=== PATIENT | male | born 1965 | race American Indian/Alaskan Native ===

== ENCOUNTER 2023-07-02 14:21 | Inpatient (IN) | payer BC, SELFPAY ==
[2023-07-02] VITALS (8 sets, daily range): BP systolic 129–143; BP diastolic 87–99; BMI 29.2
[2023-07-02 11:09] LABS: % Basophils 0.5 % (0-2); % Immature Granulocytes 0.5 % (0-0.5); % Lymphocytes 23.3 % (20.5-51.1); % Monocytes 12.5 % (1.7-9.3); % Neutrophils 61.2 % (42.2-75.2); Absolute Eosinophils 0.1 10^3/uL (0-0.7); Absolute Lymphocytes 1.4 10^3/uL (1.2-3.4); Absolute Monocytes 0.8 10^3/uL (0.1-0.6); Absolute Neutrophils 3.7 10^3/uL (1.4-6.5); Hematocrit 32.2 % (39.0-52.0); Hemoglobin 10.7 g/dL (13.0-18.0); Mean Corp Hgb Conc. 33.2 g/dL (33.0-37.0); Mean Corpuscular Volume 63.1 fL (80.0-94.0); Mean Platelet Volume 10.4 fL (7.4-10.4); Nucleated Red Blood Cells % 0 % (-); Platelet Count 280 10^3/uL (130-400); Red Cell Dist. Width 16.6 % (11.5-14.5); White Blood Cell Count 6.1 10^3/uL (4.8-10.8)
[2023-07-02 11:24] LABS: ALT (SGPT) 20 U/L (0-50); AST (SGOT) 28 U/L (17-59); Albumin 4.2 g/dl (3.5-5.0); Alkaline Phosphatase 54 U/L (38-126); Blood Urea Nitrogen 13 mg/dl (9-20); Calcium 8.8 mg/dl (8.4-10.2); Carbon Dioxide 21 mmol/L (22-30); Chloride 93 mmol/L (98-107); Glucose 86 mg/dl (70-99); Potassium 4.4 mmol/L (3.5-5.1); Sodium 119 mmol/L (135-145); Total Bilirubin 1.4 mg/dl (0.2-1.3); Total Protein 7.1 g/dl (6.3-8.2); eGFR > 60.00
[2023-07-02 11:30] LABS: Troponin I < 0.012 ng/ml
--- NOTE | 2023-07-02 12:19 | ED.GENMED ---
History of Present Illness
General
Chief Complaint: Chest Pain
Source: patient and family
Time Seen by Provider: 07/02/23 11:53
Travel History
Have you had any contact with someone who has COVID-19?: No
Do you have any symptoms of coronavirus? Fever > 100 degrees, chills, cough, shortness of breath, sore throat, loss of taste or smell, muscle aches, or headache?: No
History of Present Illness
History of Present Illness:
58-year-old male with past medical history of recent calvarial fracture with resulting intracranial bleeding in May, hypothyroidism and beta thalassemia presenting to the emergency department with family after patient reported some left-sided
chest discomfort over the last few days, waxes and wanes, no exacerbating or alleviating symptoms, currently asymptomatic. Daughter does note that patient has expressed some generalized fatigue and weakness as well as seems to be having some memory
issues but that the memory issues go back to his last head injury in May. Patient was admitted at [facility] for approximately 10 days. He had repeat head CT showing no further bleeding 2 days after the initial injury. They
do note that while he was at the hospital he had issues with hyponatremia and is currently taking sodium tablets and has a follow-up visit scheduled with nephrology in the coming week or so. They also note he is scheduled to have an MRI of his head
on July 10 due to ongoing left ear hearing issues since his fall/injury.
Past History
Past History
ED Past Medical History: Hypothyroidism and Other (ICH); Negative Asthma, HTN, Hypercholesterolemia or NIDDM
ED Past Surgical History: Other (Hernia repair)
Social History
Tobacco: Non-smoker
Alcohol: None
Drug: None
Personal:
Living: with family
Review of Systems
Review of Systems
All Other Systems: ROS reviewed and negative except as documented in HPI and ROS
Phy Exam
Physical Exam
Physical Exam:
GENERAL: Alert , in no apparent distress
EYE: conjunctiva clear
NECK: Supple
ENT: o/p clr, mmm.
CARDIAC: Regular rate and rhythm
LUNGS: Clear breath sounds bilaterally, no acute respiratory distress, no wheezes/rales/rhonchi
Abdomen: Soft, nontender, nondistended
NEUROLOGICAL: Alert and oriented
SKIN: Warm and dry, skin intact.
MUSCULOSKELETAL: well perfused.
PSYCH: Normal and appropriate interaction.
Scores
Heart Failure Risk
Heart Failure Risk Score: Not Applicable
Heart Score for Chest Pain Patients
STEMI patient?: No
History: Slightly or Non-Suspicious
ECG: Normal
Age: >45 - <65 years
Risk Factors: 1 or 2 Risk Factors
Troponin: </= Normal Limit
Heart Score for Chest Pain Patients: 2
Heart Score Risk: 2.5% MACE over next 6 weeks
Withdrawal Assessment of Alcohol
Withdrawal Assessment Completed?: Not applicable
Course
Orders/Labs/Results
Orders:
Orders
07/02/23 10:33
ECG [Electrocardiogram (*1)] Urgent
Reason for Study: Chest Pain
EKG- Treatment ONCE
07/02/23 10:34
Electrocardiogram (*1) Urgent
Reason for Study: Chest Pain
EKG- Treatment ONCE
07/02/23 10:51
CMP [Comprehensive Metabolic Panel] Urgent
Complete Blood Count/With Diff Urgent
Troponin I Urgent
07/02/23 12:09
Osmolality, Random Urine Urgent
Serum Osmolality Urgent
Urine Sodium Urgent
07/02/23 12:14
CR Chest - 2 Views Urgent
Comment:
Reason For Exam: chest pain
07/02/23 12:20
CT Head W/o Iv Contrast Urgent
Comment:
Reason For Exam: recent fall with ICH in may. hyponatremia
07/02/23 13:00
3% Sodium Chloride 250 ml [Sodium Chloride 3%] 250 ml IV ONCE
07/02/23 17:00
Basic Metabolic Panel Routine
Abnormal Lab Results
07/02/23
10:51
Hgb 10.7 L g/dL
(13.0-18.0)
Hct 32.2 L %
(39.0-52.0)
MCV 63.1 L fL
(80.0-94.0)
MCH 21.0 L pg
(27.0-31.0)
RDW 16.6 H %
(11.5-14.5)
Absolute Monos (auto) 0.8 H 10^3/uL
(0.1-0.6)
Monocytes % 12.5 H %
(1.7-9.3)
Sodium 119 L* mmol/L
(135-145)
Chloride 93 L mmol/L
(98-107)
Carbon Dioxide 21 L mmol/L
(22-30)
Total Bilirubin 1.4 H mg/dl
(0.2-1.3)
07/02/23 10:51
Vital Signs
Initial and Last Documented VS:
Initial Vital Signs
Temp Pulse Resp BP Pulse Ox
98.4 F 70 18 133/87 100
07/02/23 10:36 07/02/23 10:36 07/02/23 10:36 07/02/23 10:36 07/02/23 10:36
Last Documented Vital Signs
Temp Pulse Resp BP Pulse Ox
98.4 F 70 18 142/91 100
07/02/23 10:36 07/02/23 13:00 07/02/23 12:45 07/02/23 12:44 07/02/23 13:00
Bryologist consulted with Physician
Bryologist consulted with physician?: Yes
Name of Physician Consulted: [place]
MDM/Problems Addressed
Differential Diagnosis Includes:
Atypical ACS presentation, PE considered given recent hospitalization however patient is not having any other symptoms nor abnormal vital signs suggestive of a PE, muscular etiology, electrolyte disturbance, I do not have concern for recurrent
intracranial bleeding
MDM/Problems Addressed:
58-year-old male presenting the emergency department for chest pain as well as family reporting some generalized weakness/fatigue and memory issues but the memory issues seem to be more of a ongoing issue since recent head injury. Labs have been
initiated in triage and reveal a significant hyponatremia of 119. Patient's EKG and troponin are unremarkable and I am less suspicious for ACS as potential cause for patient's presenting symptoms. Given his profound hyponatremia will admit. Plan
to discuss with nephrology and hospitalist team.
*Radiology
Radiology exam reviewed: radiology read reviewed
*Pulse Oximetry
Patient hypoxic: no
*EKG
Interpreted by ED Provider?: Yes
Comparison EKG: no changes
Heart Rate: 70
Rate: normal
Rhythm: sinus
[place]: normal axis
Interval: first degree heart block
Ischemia: no ischemia
*Suction Dredge Dumping Supervisor Interpretation
Rate: normal
Rhythm: sinus
*Critical Care Note
Total Time (30-74mins, 75-104mins- exclusive of procedures): 30
comment:
Critical care statement: A total of 30 minutes of critical care time was provided for this patient. This includes management of unstable vital signs, evaluation of the patient at bedside, reviewing the patient's pertinent medical records, discussion
with consultants, review of old EKGs and review of pertinent medical records. This time with separate from time utilized to perform the aforementioned documented procedures
Data Reviewed
Review of Other/Old Records Reveals: Labs
Source: patient and records
Patient Management
Discussion with other providers: Hospitalist and Senior Control Systems Engineer
Escalation/DeEscalation of care consider admission/obs:
I discussed the case with on-call yard motor operator, Dr. Taylor, who agrees with plan for 30 mL/h of 3% normal saline and will consult on the patient. Hospitalist team is aware and accepts for continued evaluation and treatment.
ED Attending Note
-
Portions of this chart may have been created with voice recognition software.� Occasional wrong word or��sound alike� substitutions may have occurred due to the inherent limitations of voice recognition software.
Discharge Plan
Departure
Patient Disposition: Admit
Date of Disposition: 07/02/23
Time of Disposition: 12:19
Presentation/result/management discussed w/ accepting MD/DO: Hospitalist
Discharge Problem:
Acute hyponatremia
Prescriptions:
No Action
levothyroxine 88 mcg Capsule
88 mcg PO DAILY
acetaminophen [Tylenol] 325 mg Tablet
650 mg PO Q4HPRN PRN (Reason: mild pain)
sodium chloride 1 gram Tablet
1,000 mg PO DAILY
calcium carbonate [Calcium 500] 500 mg calcium (1,250 mg) Tablet
500 mg PO DAILY
Interventions
Interventions:
*Risk Screen - Suicide Last Done: 07/02/23 12:32
*General Assessment Last Done: 07/02/23 12:33
*Neglect/Abuse Screening Last Done: 07/02/23 12:32
*ED COVID-19 Vaccine History Last Done: 07/02/23 12:33
ED- Cardiac Assessment Last Done: 07/02/23 13:09
Discharge Date and Time
Print Language: YEMENI
--- NOTE | 2023-07-02 12:26 | W.CON.NEPH ---
Consultation
-
Date/Time Consultation Requested: July 02, 2023 11 AM
Date/Time Consultation Performed: July 02, 2023 1 PM
Requesting Provider: Dr. Gordon
Performing Provider: Dr. Taylor
Reason for Consultation: Hyponatremia
Medical History
-
Chief Complaint: Hyponatremia
History of Present Illness:
This is a 58-year-old [place] gentleman with very limited medical history. He has hypothyroidism treated with Synthroid without issues. On May 27 he had fallen and hit his head and became unconscious. He was taken to [facility] and was diagnosed with left-sided skull fracture as well as intracranial hemorrhage. At that time he was also noted to have hyponatremia with a sodium level of 119 by his report. This was treated and ultimately he was given sodium
chloride tablets. He says that he had follow-up blood work on June 22 with his primary which had shown a sodium level of 131. Over the last 2 days he started to have chest pain in the left upper chest wall. This is what prompted his emergency
room visit. Here he was noted to have a sodium level of 119. He does also have beta thalassemia trait with stable hemoglobin and anemia.
Past Medical History
Hypothyroidism
Intracranial hemorrhage
Beta thalassemia trait
Bilateral inguinal hernia repair
Bilateral rotator cuff surgery
Social History
Tobacco: Non-Smoker
Alcohol: None
Family History
No CKD
Allergies / Home Medications
Allergy/AdvReac Type Severity Reaction Status Date / Time
No Known Allergies Allergy Verified 10/18/21 08:30
�Medication �Instructions �Recorded �Confirmed �Type
levothyroxine 88 mcg capsule 88 mcg PO DAILY 10/14/21 10/18/21 History
multivitamin 1 tab PO DAILY 10/14/21 10/18/21 History
oxycodone 5 mg tablet 5 - 10 mg (1 - 2 x 5 mg) PO Q4HPRN 10/18/21 Rx
PRN moderate to severe pain #14
tabs
Physical Exam
Vital Signs
Vital Signs
Temp Pulse Resp BP Pulse Ox
98.4 F 70 18 133/87 100
07/02/23 10:36 07/02/23 10:36 07/02/23 10:36 07/02/23 10:36 07/02/23 10:36
Lab Results
WBC 6.1 10^3/uL (4.8-10.8) 07/02/23 10:51
RBC 5.10 10^6/uL (4.70-6.10) 07/02/23 10:51
Hgb 10.7 g/dL (13.0-18.0) L 07/02/23 10:51
Hct 32.2 % (39.0-52.0) L 07/02/23 10:51
Plt Count 280 10^3/uL (130-400) 07/02/23 10:51
Sodium 119 mmol/L (135-145) L* 07/02/23 10:51
Potassium 4.4 mmol/L (3.5-5.1) 07/02/23 10:51
Chloride 93 mmol/L (98-107) L 07/02/23 10:51
Carbon Dioxide 21 mmol/L (22-30) L 07/02/23 10:51
BUN 13 mg/dl (9-20) 07/02/23 10:51
Creatinine 0.7 mg/dL (0.7-1.3) 07/02/23 10:51
eGFR > 60.00 07/02/23 10:51
Glucose 86 mg/dl (70-99) 07/02/23 10:51
Calcium 8.8 mg/dl (8.4-10.2) 07/02/23 10:51
Albumin 4.2 g/dl (3.5-5.0) 07/02/23 10:51
Assessment/Plan
-
Assessment:
Hyponatremia
Recent intracranial hemorrhage
Hypothyroidism
Beta thalassemia trait
Plan:
3% sodium chloride solution IV at 30 mL/h.
Serial BMP
Check urine studies
Check CT head
Fluid restriction 1200 cc/day
Reviewed with patient and daughter
Data Reviewed
-
Radiology: Image Personally Visualized and interpreted (Chest x-ray on 07/02/2023 by my reading shows no acute disease) and Report Reviewed by me (CT head on 07/02/2023 shows no bleeding. Chronic right basal ganglia infarct)
Medical Tests (Nuc Med, Echo etc): Image Personally Visualized and interpreted (EKG on July 02, 2023 by my reading shows normal sinus rhythm first-degree AV block)
Labs: Labs Reviewed by me
Old Records: Reviewed
[2023-07-02] MEDS: SODIUM CHLORIDE 3% 250 IV (13:05)
--- NOTE | 2023-07-02 14:05 | HPS.HSE ---
Family Physician
-
Family Physician: Keith Galindo MD
Chief Complaint
-
chest pain
History of Present Illness
58 y/o M hx of recent intracranial hemorrhage after fall (05/2023) presents to ER for chest pain. Describes pain as Left upper chest wall, sharp, 4/10, nonradiating. At home, took Tylenol with relief. No associated SOB/palpitations/fever/chills. No
trauma. Pain relieved with Tylenol.
Recently patient admitted [facility] for fall and suffered intracranial hemorrhage. He was conservatively managed. At that visit, was noted to have hyponatremia to 119 - given salt tabs. Outpatient being managed by primary and highest improvement was
to 131.
In ER here found to have Na 119. 3% saline started. Patient admitted.
Medical History
Past Medical History
Past Medical History: Reports Hypothyroidism and Other (intracranial hemorrhage after fall (05/2023))
Past Surgical History: Reports Orthopedic (rotator cuff surgery) and Other (bilateral inguinal hernia repair)
Social History
Tobacco: Non-smoker
Alcohol: None
Drug: None
Personal:
Living: With Family
Family History
Family History: Not pertinent
Allergies / Home Medications
Allergies reflects when Allergies were last updated in [facility].
Home Medications with original date entered in [employer]
Allergy/Medication List:
Allergies
Allergy/AdvReac Type Severity Reaction Status Date / Time
No Known Allergies Allergy Verified 10/18/21 08:30
Home Medications
levothyroxine 88 mcg capsule 88 mcg PO DAILY 10/14/21
acetaminophen 325 mg tablet (Tylenol) 650 mg PO Q4HPRN PRN mild pain 07/02/23
calcium carbonate 500 mg PO DAILY 07/02/23
sodium chloride 1 gram tablet 1,000 mg PO DAILY 07/02/23
Review of Systems
-
A 12 point ROS was completed and negative except as noted: Yes
Physical Exam
Vital Signs
Vital Signs
Temp Pulse Resp BP Pulse Ox
98.4 F 70 18 142/91 100
07/02/23 10:36 07/02/23 13:00 07/02/23 12:45 07/02/23 12:44 07/02/23 13:00
Physical Exam
General: No Apparent Distress
HEENT: NormoCephalic and Anicteric
Respiratory: Clear; No Wheezes, Rales or Rhonchi
Cardiac: S1/S2 and Regular Rhythm
GI: Soft and Non Tender
Genito-urinary: Clear Urine
Musculoskeletal: No Edema
Neuro: AO x 3
Hematologic/Lymphatic: No Lymphadenopathy
Psych: Calm
Laboratory Results
-
07/02/23 10:51
Laboratory Results
Total Bilirubin 1.4 mg/dl (0.2-1.3) H 07/02/23 10:51
AST 28 U/L (17-59) 07/02/23 10:51
ALT 20 U/L (0-50) 07/02/23 10:51
Alkaline Phosphatase 54 U/L (38-126) 07/02/23 10:51
Troponin I < 0.012 ng/ml 07/02/23 10:51
Data Reviewed
-
Diagnostic Radiology: Report Reviewed by me, Discussed with Patient and Discussed with Family
Lab Data: Labs Reviewed by me, Discussed with Patient and Discussed with Family
Impression/Plan
-
Assessment:
L chest wall pain
- atypical; family feels stress related
- trop neg x 1; repeat at 5pm
- EKG without ischemia
- CXR negative
- prn Tylenol
Acute hyponatremia, euvolemic
- on salt tabs outpatient - will hold for now
- Nephrology consulted
- check urine lytes, osms, TSH, AM cortisol
- 3% saline - repeat BMP 5pm. Avoid rapid overcorrection.
- 1200 cc fluid restrict
Recent intracranial hemorrhage from fall
- s/p 10 hospitalization at [facility] in late May
- CT head negative here
Hypothyroidism - continue replacement
Microcytic anemia
B-thal trait
DVT ppx: SCDs
Code: Full
[2023-07-02 16:03] LABS: Osmolality Urine 575 mOsm/kg (300-900)
[2023-07-02 16:17] LABS: Urine Sodium 195 mmol/L (30-90)
[2023-07-02 16:36] LABS: Osmolality Serum 251 mOsm/kg (275-300)
--- NOTE | 2023-07-02 16:55 | PTCARENOTE ---
pt aaox3. admit form ed. walked to bed. pt states no pain or sob. room air breath sounds clear. nsr seen on monitor. 3% saline running as ordered.
[2023-07-02 17:47] LABS: Troponin I < 0.012 ng/ml
[2023-07-02 18:13] LABS: Blood Urea Nitrogen 13 mg/dl (9-20); Calcium 8.9 mg/dl (8.4-10.2); Carbon Dioxide 21 mmol/L (22-30); Chloride 91 mmol/L (98-107); Estimated Creatinine Clearance 125 ml/min; Glucose 102 mg/dl (70-99); Potassium 4.5 mmol/L (3.5-5.1); Sodium 119 mmol/L (135-145); eGFR > 60.00
[2023-07-02 23:46] LABS: Blood Urea Nitrogen 12 mg/dl (9-20); Calcium 8.7 mg/dl (8.4-10.2); Carbon Dioxide 21 mmol/L (22-30); Chloride 94 mmol/L (98-107); Estimated Creatinine Clearance 125 ml/min; Glucose 95 mg/dl (70-99); Potassium 4.4 mmol/L (3.5-5.1); Sodium 120 mmol/L (135-145); eGFR > 60.00
[2023-07-03] VITALS (11 sets, daily range): BP systolic 129–146; BP diastolic 85–117; BMI 26.7
[2023-07-03] MEDS: SODIUM CHLORIDE 3% 250 IV ×3 (00:20→19:16)
[2023-07-03 04:42] LABS: Hematocrit 36.4 % (39.0-52.0); Hemoglobin 11.9 g/dL (13.0-18.0); Mean Corp Hgb Conc. 32.7 g/dL (33.0-37.0); Mean Corpuscular Hgb 20.8 pg (27.0-31.0); Mean Corpuscular Volume 63.7 fL (80.0-94.0); Mean Platelet Volume 10.6 fL (7.4-10.4); Platelet Count 271 10^3/uL (130-400); Red Blood Cell Count 5.71 10^6/uL (4.70-6.10); Red Cell Dist. Width 17.5 % (11.5-14.5); White Blood Cell Count 6.8 10^3/uL (4.8-10.8)
[2023-07-03 05:02] LABS: Blood Urea Nitrogen 11 mg/dl (9-20); Carbon Dioxide 20 mmol/L (22-30); Chloride 94 mmol/L (98-107); Estimated Creatinine Clearance 125 ml/min; Glucose 93 mg/dl (70-99); Potassium 4.7 mmol/L (3.5-5.1); Sodium 121 mmol/L (135-145); eGFR > 60.00
[2023-07-03 05:34] LABS: Cortisol, Random 16.2 ug/dl; TSH 0.87 uIU/ml (0.47-4.68)
[2023-07-03] MEDS: SYNTHROID 88 MCG PO (06:20)
--- NOTE | 2023-07-03 08:15 | PTCARENOTE ---
Patient received from manufacturing shift supervisor. Patient resting comfortably in bed. AAO, VSS. No events noted overnight. No complaints of pain at this time. Currently on 3% NSS, will confirm next lab draws and renewal of 3%. Call bingham in reach.
--- NOTE | 2023-07-03 12:32 | W.PN.NEPH.PH ---
Today's Communication / Plan
-
cont 3% saline, FR
resume salt tab soon
Assessment/Plan
-
Assessment:
Hyponatremia
Recent intracranial hemorrhage
Hypothyroidism
Beta thalassemia trait
Plan:
Hyponatremia likely SIADH with recent h.o head injury, CT head no bleed
3% sodium chloride solution IV at 30 mL/h to continue
sodium slow to improve 121 this am .
Serial labs Q4h
U na high 195 on salt tab, U osmo high 575
TSH and cortisol were ok
need FR 40 ounces/day
monitor mild met acidosis
Reviewed with patient
-
-
Date of Service: July 03, 2023
CC / HPI / ROS
-
Chief Complaint:
hyponatremia
History of Present Illness:
sodium improving to 121 on 3% saline
BP stable
no fever, non oliguric subjectively
Review of Systems:
no cp or sob
no dysuria
Labs
-
Labs:
WBC 6.8 10^3/uL (4.8-10.8) 07/03/23 04:07
RBC 5.71 10^6/uL (4.70-6.10) 07/03/23 04:07
Hgb 11.9 g/dL (13.0-18.0) L 07/03/23 04:07
Hct 36.4 % (39.0-52.0) L 07/03/23 04:07
Plt Count 271 10^3/uL (130-400) 07/03/23 04:07
Potassium 4.7 mmol/L (3.5-5.1) 07/03/23 04:07
Chloride 94 mmol/L (98-107) L 07/03/23 04:07
Carbon Dioxide 20 mmol/L (22-30) L 07/03/23 04:07
BUN 11 mg/dl (9-20) 07/03/23 04:07
Creatinine 0.7 mg/dL (0.7-1.3) 07/03/23 04:07
eGFR > 60.00 07/03/23 04:07
Glucose 93 mg/dl (70-99) 07/03/23 04:07
Calcium 9.0 mg/dl (8.4-10.2) 07/03/23 04:07
Albumin 4.2 g/dl (3.5-5.0) 07/02/23 10:51
Physical Exam
-
Vital Signs:
Vital Signs
Temp Pulse Resp BP Pulse Ox
98.2 F 58 14 145/89 97
07/03/23 11:37 07/03/23 06:00 07/03/23 06:00 07/03/23 06:00 07/03/23 06:00
Cardiovascular:: Regular rate and rhythm
Respiratory:: Bilateral: CTA
Lung Excursion:: Normal
Abdomen:: Nontender and Soft
Extremity Edema:: None: Bilateral:
Pulido Catheter: No
[2023-07-03 12:55] LABS: Sodium 123 mmol/L (135-145)
[2023-07-03 16:40] LABS: Sodium 122 mmol/L (135-145)
--- NOTE | 2023-07-03 17:04 | CM ---
Patient with Dx L chest wall pain, Acute hyponatremia.
Met with patient who resides with his in a 2 story house.
The patient has been independent in ADLs and ambulation.
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
The patient has no DME, prior VN.
PCP - Keith Galindo
Pharmacy - [facility]
His son will provide transport home.
No CM d/c needs identified.
Plan home.
--- NOTE | 2023-07-03 17:16 | W.PN.HOSP.TC ---
Today's Communication/Plan
-
follow lytes
Assessment / Plan
Assessment / Plan
L chest wall pain
- atypical; family feels stress related
- trop neg x 2
- EKG without ischemia
- CXR negative
- prn Tylenol
Acute hyponatremia, euvolemic, s/p head trauma
- on salt tabs outpatient - resume as per Nephro
- Nephrology consulted
- check urine lytes: Urine Osmo 575, Ur Na 195 (30-90), TSH 0.87, AM 16.2
- 3% saline - repeat BMP 5pm. Avoid rapid overcorrection.
- 1200 cc fluid restrict
Na 119-->120-->121-->122
Recent intracranial hemorrhage from fall
- s/p hospitalization at [facility] in late May
- CT head negative here
Hypothyroidism - continue replacement
Microcytic anemia
B-thalassemia trait
DVT ppx: SCDs
Code: Full
Anticipated Discharge: > 48 hours
Subjective/Interval History
-
Date of Service: July 03, 2023
Awake, alert, conversant
Objective Data
-
Labs:
Laboratory Results
07/03/23 07/03/23 07/03/23
12:17 15:56 20:00
Sodium 123 L 122 L Pending
Vital Signs:
Vital Signs
Temp Pulse Resp BP Pulse Ox
98.1 F 58 14 145/89 95
07/03/23 16:00 07/03/23 06:00 07/03/23 06:00 07/03/23 06:00 07/03/23 10:45
I&O
07/02/23 07/03/23 07/04/23
06:59 06:59 06:59
Intake Total 360 / 360 240 / 240
Balance 360 / 360 240 / 240
Review of Systems
-
History Source: Patient and Coordinated Provider
Constitutional: Denies Fever
EENT: Reports No Symptoms Reported
Respiratory: Reports No Symptoms; Denies Trouble Breathing
Cardiac: Reports No Symptoms
Genitourinary: Reports No Symptoms
Neuro: Reports No Symptoms; Denies Dizzy or Headache
Physical Exam
-
General: Well Developed, Well Nourished and No Apparent Distress
HEENT: Normocephalic, Atraumatic and Moist Mucous Membranes
Respiratory: Clear to Auscultation; Negative Wheezes, Rales or Rhonchi
Cardiac: Regular Rhythm and S1/S2
GI: Soft, Nontender and Nondistended
Musculoskeletal: No Clubbing, No Cyanosis and No Edema
Neuro: Awake, Alert and Oriented
[2023-07-03] MEDS: LASIX 20 MG IV (17:27)
[2023-07-03 20:19] LABS: Sodium 126 mmol/L (135-145)
[2023-07-04] VITALS (8 sets, daily range): BP systolic 121–137; BP diastolic 74–99
[2023-07-04 01:43] LABS: Sodium 129 mmol/L (135-145)
[2023-07-04] MEDS: SYNTHROID 88 MCG PO (04:52)
[2023-07-04 05:28] LABS: Blood Urea Nitrogen 12 mg/dl (9-20); Calcium 9.2 mg/dl (8.4-10.2); Carbon Dioxide 22 mmol/L (22-30); Chloride 99 mmol/L (98-107); Estimated Creatinine Clearance 109 ml/min; Glucose 98 mg/dl (70-99); Potassium 5.1 mmol/L (3.5-5.1); Sodium 127 mmol/L (135-145); eGFR > 60.00
[2023-07-04] MEDS: SODIUM CHLORIDE 3% 250 IV (06:34)
--- NOTE | 2023-07-04 11:47 | W.PN.NEPH.PH ---
Today's Communication / Plan
-
resume salt tab and suspect will need lasix even at d/c
cont 3% , recheck labs
Assessment/Plan
-
Assessment:
Hyponatremia
Recent intracranial hemorrhage
Hypothyroidism
Beta thalassemia trait
Plan:
Hyponatremia likely SIADH with recent h.o head injury, CT head no bleed
sodium improving slowly with 3%
recheck now and likely dose lasix again
U na high 195 on salt tab, U osmo high 575
TSH and cortisol were ok
FR 40 ounces/day
Reviewed with patient
-
-
Date of Service: July 04, 2023
CC / HPI / ROS
-
Chief Complaint:
hyponatremia
History of Present Illness:
sodium improving to 129 on 3% saline but down to 127 off 3% this am
BP stable
no fever, non oliguric subjectively
Review of Systems:
no cp or sob
no dysuria
Labs
-
Labs:
WBC 6.8 10^3/uL (4.8-10.8) 07/03/23 04:07
RBC 5.71 10^6/uL (4.70-6.10) 07/03/23 04:07
Hgb 11.9 g/dL (13.0-18.0) L 07/03/23 04:07
Hct 36.4 % (39.0-52.0) L 07/03/23 04:07
Plt Count 271 10^3/uL (130-400) 07/03/23 04:07
Potassium 5.1 mmol/L (3.5-5.1) 07/04/23 04:57
Chloride 99 mmol/L (98-107) 07/04/23 04:57
Carbon Dioxide 22 mmol/L (22-30) 07/04/23 04:57
BUN 12 mg/dl (9-20) 07/04/23 04:57
Creatinine 0.8 mg/dL (0.7-1.3) 07/04/23 04:57
eGFR > 60.00 07/04/23 04:57
Glucose 98 mg/dl (70-99) 07/04/23 04:57
Calcium 9.2 mg/dl (8.4-10.2) 07/04/23 04:57
Albumin 4.2 g/dl (3.5-5.0) 07/02/23 10:51
Physical Exam
-
Vital Signs:
Vital Signs
Temp Pulse Resp BP Pulse Ox
98.0 F 77 15 125/97 98
07/04/23 11:16 07/04/23 10:59 07/04/23 10:59 07/04/23 10:59 07/04/23 10:59
Cardiovascular:: Regular rate and rhythm
Respiratory:: Bilateral: CTA
Lung Excursion:: Normal
Extremity Edema:: None: Bilateral:
Pulido Catheter: No
[2023-07-04] MEDS: SODIUM CHLORIDE 1 GRAM PO ×2 (12:22→19:47)
[2023-07-04 13:18] LABS: Sodium 130 mmol/L (135-145)
[2023-07-04] MEDS: LASIX 20 MG IV (17:15)
--- NOTE | 2023-07-04 19:43 | W.PN.HOSP.TC ---
Today's Communication/Plan
-
transfer to Med/Surg
will allow to shower
check Na in AM
will need to discuss with nephrology outpt management
Assessment / Plan
Assessment / Plan
L chest wall pain
- atypical; family feels stress related
- trop neg x 2
- EKG without ischemia
- CXR negative
- prn Tylenol
Acute hyponatremia, euvolemic, s/p head trauma
- on salt tabs outpatient - resume as per Nephro
- Nephrology consulted
- check urine lytes: Urine Osmo 575, Ur Na 195 (30-90), TSH 0.87, AM 16.2
- 3% saline - stopped
- 1200 cc fluid restrict
Na 119-->120-->121-->122-->126-->129-->127-->130
Recent intracranial hemorrhage from fall
- s/[facility]
- CT head negative here
Hypothyroidism - continue replacement
Microcytic anemia
B-thalassemia trait
DVT ppx: SCDs
reviewed with dgt in room
Code: Full
Anticipated Discharge: 24 - 48 hours
Subjective/Interval History
-
Date of Service: July 04, 2023
Generally feels well
Objective Data
-
Labs:
Laboratory Results
07/04/23
12:33
Sodium 130 L
Vital Signs:
Vital Signs
Temp Pulse Resp BP Pulse Ox
98.1 F 81 16 136/89 98
07/04/23 15:37 07/04/23 15:10 07/04/23 15:10 07/04/23 15:10 07/04/23 15:10
I&O
07/03/23 07/04/2307/04/24
06:59 06:59 06:59
Intake Total 360 / 360 1250 / 1250 730 / 730
Balance 360 / 360 1250 / 1250 730 / 730
Review of Systems
-
History Source: Patient and Coordinated Provider
Constitutional: Denies Fever
EENT: Reports No Symptoms Reported
Respiratory: Reports No Symptoms; Denies Trouble Breathing
Cardiac: Reports No Symptoms
Genitourinary: Reports No Symptoms
Neuro: Reports No Symptoms; Denies Dizzy or Headache
Physical Exam
-
General: Well Developed, Well Nourished and No Apparent Distress
HEENT: Normocephalic, Atraumatic and Moist Mucous Membranes
Respiratory: Clear to Auscultation; Negative Wheezes, Rales or Rhonchi
Cardiac: Regular Rhythm and S1/S2
GI: Soft, Nontender and Nondistended
Musculoskeletal: No Clubbing, No Cyanosis and No Edema
Neuro: Awake, Alert and Oriented
--- NOTE | 2023-07-05 00:51 | PTCARENOTE ---
pt m/s level of care- to be transferred to - awaiting bed to be cleaned. pt VSS- able to make needs known.
--- NOTE | 2023-07-05 03:21 | PTCARENOTE ---
Pt aaox3 able to make his needs known.Pt oriented to room & call bingham in reach.Plan of care continued.
[2023-07-05 03:41] VITALS: BP 119/71
[2023-07-05] MEDS: SYNTHROID 88 MCG PO (06:19)
[2023-07-05 06:25] LABS: Blood Urea Nitrogen 17 mg/dl (9-20); Carbon Dioxide 23 mmol/L (22-30); Chloride 96 mmol/L (98-107); Estimated Creatinine Clearance 97 ml/min; Glucose 85 mg/dl (70-99); Sodium 131 mmol/L (135-145); eGFR > 60.00
[2023-07-05 07:30] VITALS: BP 125/80
[2023-07-05] MEDS: SODIUM CHLORIDE 1 GRAM PO (08:04)
--- NOTE | 2023-07-05 14:21 | W.PN.HOSP.TC ---
Today's Communication/Plan
-
dc today
Assessment / Plan
Assessment / Plan
L chest wall pain, has resolved
- atypical; family feels stress related
- trop neg x 2
- EKG without ischemia
- CXR negative
- prn Tylenol
Acute hyponatremia, euvolemic, s/p head trauma
- on salt tabs outpatient - resume as per Nephro
- Nephrology consulted, discussed with Dr. Daigle who has cleared him for planned dc
- check urine lytes: Urine Osmo 575, Ur Na 195 (30-90), TSH 0.87, AM 16.2
- 3% saline - stopped
- 1200 cc fluid restrict
Na 119-->120-->121-->122-->126-->129-->127-->130-->131
Recent intracranial hemorrhage from fall
- s/p hospitalization at [facility] in late May
- CT head negative here
Hypothyroidism - continue replacement
Microcytic anemia
B-thalassemia trait
DVT ppx: SCDs
Pt has appt with Neurologist on 07/11 (part of [place], pt does not remember name)
Code: FullMore than 30 minutes spent in discharge including
Final examination of the patient
Summarizing hospital stay
Instructions for continuing care to all relevant caregivers
Preparation of discharge records, prescriptions, and referral forms
Total time spent (in minutes): 45
Anticipated Discharge: Today
Subjective/Interval History
-
Date of Service: July 05, 2023
Feels better and is very anxious for planned dc
Objective Data
-
Labs:
Laboratory Results
07/05/23
05:18
Sodium 131 L
Potassium 5.0
Chloride 96 L
Carbon Dioxide 23
BUN 17
Creatinine 0.9
Glucose 85
Calcium 10.0
Vital Signs:
Vital Signs
Temp Pulse Resp BP Pulse Ox
98.0 F 76 18 125/80 99
07/05/23 07:30 07/05/23 07:30 07/05/23 07:30 07/05/23 07:30 07/05/23 07:30
I&O
07/04/23 07/05/23 07/06/23
06:59 06:59 06:59
Intake Total 1250 / 1250 730 / 730
Balance 1250 / 1250 730 / 730
Review of Systems
-
History Source: Patient
Constitutional: Denies Fever
EENT: Reports No Symptoms Reported
Respiratory: Reports No Symptoms; Denies Trouble Breathing
Cardiac: Reports No Symptoms
Genitourinary: Reports No Symptoms
Neuro: Reports No Symptoms; Denies Dizzy or Headache
Physical Exam
-
General: Well Developed (muscular), Well Nourished and No Apparent Distress
HEENT: Normocephalic, Atraumatic and Moist Mucous Membranes
Respiratory: Clear to Auscultation; Negative Wheezes, Rales or Rhonchi
Cardiac: Regular Rhythm and S1/S2
GI: Soft, Nontender and Nondistended
Musculoskeletal: No Clubbing, No Cyanosis and No Edema
Neuro: Awake, Alert and Oriented
--- NOTE | 2023-07-05 14:29 | W.DS.TRANS ---
DC Summary - Transportation Supervisor
-
Discharge Instructions:
Discharge Diagnosis/Procedures Symptomatic Hyponatremia
Diet Restrict fluids to 48 oz
Activity No restrictions
Driving Restrictions As prior to admission
Bathing Restrictions None
Blood Work BMP in 5 days
Instructions:
Stand-Alone Forms:
Changes to Home Medications: No
Discharge Medications:
DC Medications w/original date entered in [employer]
levothyroxine 88 mcg capsule 88 mcg PO DAILY Thyroid 10/14/21
acetaminophen 325 mg tablet (Tylenol) 650 mg PO Q4HPRN PRN mild pain 07/02/23
calcium carbonate 500 mg PO DAILY Supplement 07/02/23
sodium chloride 1,000 mg soluble tablet 1,000 mg PO BID #60 tabs 07/05/23
Home Medication Changes
Pending Results: No
--- NOTE | 2023-07-05 15:05 | CM ---
CM reviewed chart- no dc needs noted
Discharge Disposition- home no needs, family transport
== END 2023-07-05 14:55 | disposition home or self-care (01) | DRG 644 ==
LOC: 4 EAST ACU 14:21
PROVIDERS: Internal Medicine; Physician Assistant Medical; ADMITTING PHYSICIAN Internal Medicine; ATTENDING PHYSICIAN Internal Medicine; CONSULT PHYSICIAN Specialist; EMERGENCY PHYSICIAN Emergency Medicine; FAMILY PHYSICIAN Internal Medicine
DX: E22.2 Syndrome of inappropriate secretion of antidiuretic hormone (principal); S02.91XA Unspecified fracture of skull, initial encounter for closed fracture; E03.9 Hypothyroidism, unspecified; D56.1 Beta thalassemia; D50.9 Iron deficiency anemia, unspecified; W19.XXXA Unspecified fall, initial encounter
CPT/HCPCS: 70450; 71046; 80048; 80053; 82533; 83930; 83935; 84295; 84300; 84443; 84484; 85025; 85027; 93005; 99291

== ENCOUNTER 2024-03-25 18:46 | Emergency (ER) | payer BC, SELFPAY ==
[2024-03-25 18:53] VITALS: BP 155/93
[2024-03-25 19:08] LABS: % Basophils 0.5 % (0-2); % Eosinophils 1.4 % (0-6); % Immature Granulocytes 0.6 % (0-0.5); % Lymphocytes 24.9 % (20.5-51.1); % Monocytes 8.3 % (1.7-9.3); % Neutrophils 64.3 % (42.2-75.2); Absolute Eosinophils 0.1 10^3/uL (0-0.7); Absolute Lymphocytes 1.6 10^3/uL (1.2-3.4); Absolute Monocytes 0.6 10^3/uL (0.1-0.6); Absolute Neutrophils 4.2 10^3/uL (1.4-6.5); Hematocrit 37.3 % (39.0-52.0); Hemoglobin 11.9 g/dL (13.0-18.0); Mean Corp Hgb Conc. 31.9 g/dL (33.0-37.0); Mean Corpuscular Hgb 21.2 pg (27.0-31.0); Mean Corpuscular Volume 66.5 fL (80.0-94.0); Mean Platelet Volume 10.3 fL (7.4-10.4); Nucleated Red Blood Cells % 0 % (-); Platelet Count 288 10^3/uL (130-400); Red Blood Cell Count 5.61 10^6/uL (4.70-6.10); Red Cell Dist. Width 15.6 % (11.5-14.5); White Blood Cell Count 6.6 10^3/uL (4.8-10.8)
[2024-03-25 19:24] LABS: ALT (SGPT) 26 U/L (0-50); AST (SGOT) 33 U/L (17-59); Albumin 4.5 g/dl (3.5-5.0); Alkaline Phosphatase 47 U/L (38-126); Blood Urea Nitrogen 11 mg/dl (9-20); Calcium 8.9 mg/dl (8.4-10.2); Carbon Dioxide 24 mmol/L (22-30); Chloride 89 mmol/L (98-107); Glucose 106 mg/dl (70-99); Sodium 122 mmol/L (135-145); Total Bilirubin 1.3 mg/dl (0.2-1.3); Total Protein 7.6 g/dl (6.3-8.2); eGFR > 60.00
[2024-03-25 19:31] LABS: Troponin I < 0.012 ng/ml
[2024-03-25 19:36] LABS: Potassium 4.4 mmol/L (3.5-5.1)
[2024-03-25 19:37] LABS: COVID-19 Antigen Negative (Negative)
[2024-03-25 19:48] LABS: Lipase 138 U/L (23-300)
[2024-03-25 21:44] VITALS: BP 148/95
[2024-03-25 22:00] VITALS: BP 156/100
--- NOTE | 2024-03-25 22:08 | ED.GENMED ---
History of Present Illness
General
Chief Complaint: Chest Problem
Source: patient
Time Seen by Provider: 03/25/24 21:20
History of Present Illness
History of Present Illness:
59-year-old male presents to the emergency room complaining of cramping sensation in his lower chest upper abdomen. No nausea or vomiting. No fever or chills. Cramping occurred for minutes after having a bowel movement. It has had a few episodes
which last a couple minutes at a time. Currently he is asymptomatic. Patient also has a history of low sodium after a head injury. 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 He supposed take sodium chloride tablets but did forget to take his medication
today. He is also on a fluid restriction which he feels he is following well. He does believe he took his sodium chloride tablets yesterday. Patient denies headache, confusion, difficulty walking.
Past History
Past History
ED Past Medical History: Hypothyroidism and Other (ICH); Negative Asthma, HTN, Hypercholesterolemia or NIDDM
ED Past Surgical History: Other (Hernia repair)
Social History
Tobacco: Non-smoker
Alcohol: None
Drug: None
Personal:
Living: with family
Phy Exam
Physical Exam
Physical Exam:
General: Awake, Alert, Oriented X3. No acute distress.
Vitals: unremarkable
Head: Atraumatic
Eyes: Pupils equal, EOMI
Throat: Airway intact, no exudates
Neck: Trachea midline
Lungs: Clear and equal b/l
Heart: Regular rate, no murmurs
Abd: Soft, Nontender, No pulsatile mass
Neuro: Nonfocal
Skin: Warm, dry, no rash
Extremities: pulses equal b/l, no edema
Course
Orders/Labs/Results
Orders:
Orders
03/25/24 18:47
EKG [Electrocardiogram (*1)] Urgent
Reason for Study: Chest Pain
03/25/24 18:48
EKG- Treatment ONCE
03/25/24 18:55
CR Chest - 2 Views Urgent
Comment:
Reason For Exam: chest pain
03/25/24 19:01
Complete Blood Count/With Diff Urgent
Comprehensive Metabolic Panel Urgent
Lipase Urgent
Troponin I Urgent
03/25/24 19:03
COVID-19 Antigen Urgent
Source: Nasal Swab
Influenza A+B Rapid Molecular Urgent
GEORGINA Source: Nasal Swab
Specimen Description:
03/25/24 22:02
Sodium Chloride 1 gram PO NOW STA
Abnormal Lab Results
03/25/24
19:01
Hgb 11.9 L g/dL
(13.0-18.0)
Hct 37.3 L %
(39.0-52.0)
MCV 66.5 L fL
(80.0-94.0)
MCH 21.2 L pg
(27.0-31.0)
MCHC 31.9 L g/dL
(33.0-37.0)
RDW 15.6 H %
(11.5-14.5)
Immature Gran % 0.6 H %
(0-0.5)
Sodium 122 L mmol/L
(135-145)
Chloride 89 L mmol/L
(98-107)
Glucose 106 H mg/dl
(70-99)
03/25/24 19:01
03/25/24 19:01
Vital Signs
Initial and Last Documented VS:
Initial Vital Signs
Temp Pulse Resp BP Pulse Ox
97.7 F 91 16 155/93 100
03/25/24 18:53 03/25/24 18:53 03/25/24 18:53 03/25/24 18:53 03/25/24 18:53
Last Documented Vital Signs
Temp Pulse Resp BP Pulse Ox
98.2 F 69 18 176/94 98
03/25/24 23:29 03/25/24 22:45 03/25/24 23:29 03/25/24 23:29 03/25/24 23:29
MDM/Problems Addressed
Differential Diagnosis Includes:
Angina, pneumothorax, pneumonia, cholecystitis
MDM/Problems Addressed:
Patient's exam is benign. He has no reproducible abdominal pain. No flank pain at this time. Patient's EKG shows no ischemic changes. Troponins normal. Patient has noted to have hyponatremia. He admits not taking his medication. He seems
relatively asymptomatic and is refusing hospitalization. Discussed the need to return should he feel worse in any way. Will give sodium chloride tablet here. Also recommended he drink less than his recommended fluid restriction for the next
couple days.
*Radiology
Radiology exam reviewed: preliminary read by ED provider
*Pulse Oximetry
Patient hypoxic: no
*EKG
Interpretation: normal
Heart Rate: 80
Rate: normal
Rhythm: sinus and PAC's
Trent: normal axis
Interval: normal interval
QRS Pattern: normal QRS
Ischemia: no ischemia
*Hose Coupling Joiner Interpretation
Rate: normal
Interpretation: normal
Rhythm: sinus
*Critical Care Note
Total Time (30-74mins, 75-104mins- exclusive of procedures): Not Applicable
ED Attending Note
-
Portions of this chart may have been created with voice recognition software.� Occasional wrong word or��sound alike� substitutions may have occurred due to the inherent limitations of voice recognition software.
Discharge Plan
Departure
Patient Disposition: Home (Routine Discharge)
Date of Disposition: 03/25/24
Time of Disposition: 23:24
Patient with high blood pressure during this ER visit?: Yes
Condition: Good
Discharge Problem:
Chest pain, Hyponatremia
Instructions: Hyponatremia, Chest Pain PCP Follow Up, BLOOD PRESSURE
Prescriptions:
No Action
levothyroxine 88 mcg Capsule
88 mcg PO DAILY
acetaminophen [Tylenol] 325 mg Tablet
650 mg PO Q4HPRN PRN (Reason: mild pain)
calcium carbonate 500 mg calcium (1,250 mg) Tablet
500 mg PO DAILY
sodium chloride 1,000 mg Tablet,Soluble
1,000 mg PO BID Qty: 60 0RF
Referrals:
UNKNOWN - PT NOT,INTERVIEWE [Family Provider] -
Activity Restrictions/Additional Instructions:
Make sure you take your sodium pills. You should have your family doctor recheck your sodium level in a few days. You must return to the ER if you develop a headache, nausea, or feel worse in any way.
Interventions
Interventions:
*Risk Screen - Suicide Last Done: 03/25/24 23:25
*General Assessment Last Done: 03/25/24 23:25
*Neglect/Abuse Screening Last Done: 03/25/24 23:25
ED- Fall Risk Assessment Last Done: 03/25/24 22:51
*ED COVID-19 Vaccine History Last Done: 03/25/24 23:25
*Nursing Disposition Last Done: 03/25/24 23:35
ED- Cardiac Assessment Last Done: 03/25/24 22:51
ED- Pulmonary Assessment Last Done: 03/25/24 22:51
Discharge Date and Time
Discharge Date/Time: 03/25/24 23:35
Print Language: BENGALI
[2024-03-25] MEDS: SODIUM CHLORIDE 1 GRAM PO (22:34)
[2024-03-25 23:29] VITALS: BP 176/94
== END 2024-03-25 23:35 | disposition home or self-care (01) ==
LOC: EMR 18:46
PROVIDERS: Emergency Medicine; EMERGENCY PHYSICIAN Emergency Medicine
DX: R07.89 Other chest pain (principal); E87.1 Hypo-osmolality and hyponatremia; R10.10 Upper abdominal pain, unspecified; E03.9 Hypothyroidism, unspecified
CPT/HCPCS: 99285; 71046; 80053; 83690; 84484; 85025; 87502; 87811; 93005

== ENCOUNTER → 2024-09-02 08:55 | Outpatient (REF) | payer BC, SELFPAY | LOC: RAD 08:55 | PROVIDERS: ATTENDING PHYSICIAN Family Medicine | DX: R07.89 Other chest pain (principal) | CPT/HCPCS: 71046 ==

== ENCOUNTER 2024-11-19 09:43 | Outpatient (RCR) | payer BC, SELFPAY | END 2024-11-19 23:59 | disposition home or self-care (01) | LOC: RPT 09:43 | PROVIDERS: ATTENDING PHYSICIAN Family Medicine | DX: S06.9X9D Unspecified intracranial injury with loss of consciousness of unspecified duration, subsequent encounter (principal); R42 Dizziness and giddiness; Z73.6 Limitation of activities due to disability; R51.9 Headache, unspecified; M54.2 Cervicalgia; V48.4XXD Person boarding or alighting a car injured in noncollision transport accident, subsequent encounter | CPT/HCPCS: 97110; 97163 ==